=== PATIENT | female | born 1985 | race Caucasian/White ===

== ENCOUNTER 2016-07-18 11:21 | Emergency (ER) | payer BC, OTHER ==
[~2016-07-18] VITALS: Ht 160 cm; Wt 77.1 kg
[~2016-07-18 11:21] MED LIST: ACETAMINOPHEN-1 EAC1 ORAL; ATIVAN1 MG ORAL; BACTRIM DS TAB1 EAC1 ORAL; BENTYL10 MG ORAL; COMPAZINE10 MG ORAL; DOXYCYCLINE MO100 MG ORAL; IBUPROFEN600 MG ORAL; KEFLEX500 MG ORAL; METRONIDAZOLE500 MG ORAL; NKM; NORCO 5-325 TA1 EACH ORAL; TAMIFLU75 MG ORAL; TYLENOL EXTRA500 MG ORAL; TYLENOL650 MG/20. ORAL; lorazepam; propanolol PO
[2016-07-18 12:10] VITALS: BP 106/69
[2016-07-18 12:55] VITALS: BP 106/69
--- NOTE | 2016-07-18 14:25 | Emergency Room Report ---
History of Present Illness General Chief Complaint: Back Pain-No Injury Source: Patient Present Illness HPI The patient is a 30-year-old female presenting with lower back pain which she states began 1 month prior. The patient states that she is a history of back pain which started after falling onto a ladder at work one year prior. The patient states that she has an appointment with a neurosurgeon in one week but is unsure of her diagnosis. The pain is described as a 10 out of 10 dull ache to the mid lower back and radiates to the legs. It is worse with walking and bending over. The patient denies any numbness or tingling of the extremities. The patient states that she has been taking Motrin and Tylenol which have not helped. Allergies: Coded Allergies: METOCLOPRAMIDE (Verified Allergy, Severe, anxious, 04/13/13) KETOROLAC (Unverified Allergy, Unknown, 04/17/14) MORPHINE (Verified Adverse Reaction, Unknown, 04/17/14) "high heart rate" Uncoded Allergies: MUSCLE RELAXERS (Allergy, Unknown, 11/14/15) antiemetics (Adverse Reaction, Unknown, 04/17/14) Patient History Past Medical History: see triage record Pertinent Family History: none Last Menstrual Period: none Now: No Reviewed Nursing Documentation: PMH: Agreed, PSxH: Agreed Nursing Documentation-PMH Past Medical History: No History, Except For Hx Cardiac Problems: No - Bilateral Thyroid mass Hx Neurological Problems: Yes - restless leg syndrome, RA Review of Systems All Other Systems: negative except mentioned in HPI Physical Exam Vital Signs Date Time Temp Pulse Resp B/P Pulse Ox O2 Delivery O2 Flow Rate FiO2 07/18/16 11:43 98.4 93 18 106/69 98 Room Air Sp02 EP Interpretation: reviewed, normal General Appearance: no apparent distress, alert, GCS 15, non-toxic Head: normocephalic, atraumatic Eyes: bilateral eye PERRL, bilateral eye normal inspection Respiratory: chest non-tender, lungs clear, normal breath sounds, speaking full sentences Cardiovascular #1: regular rate, rhythm, no edema Musculoskeletal: normal inspection, back normal, digits/nails normal, gait/ station normal, normal range of motion, tender - TTP over Mid lumbar spine and paraspinous muscles Neurologic: alert, oriented x3, responsive, motor strength/tone normal, sensory intact, normal gait, speech normal Reflexes: 3+ bicep (R), 3+ bicep (L), 3+ tricep (R), 3+ tricep (L), 3+ knee (R) , 3+ knee (L) Skin: normal color, no rash, warm/dry, well hydrated Lymphatic: no adenopathy Medical Decision Making PA Attestation Dr. Ribeiro is my supervising physician. Patient management was discussed with my supervising physician Diagnostic Impression: Primary Impression: Chronic pain Additional Impression: Drug-seeking behavior ER Course The patient is a 30-year-old female presenting with lower back pain which she states began 1 month prior. Ddx considered include but not limited to lumbar strain, degenerative disease, epidural abscess, cauda equina, chronic pain, narcotic dependency. PE: vitals WNL. NAD Lumbar: TTP of paraspinous muscles and midline. No step-offs or obvious deformity. Full active range of motion. Normal gait. sensation intact to light touch. Otherwise exam is unremarkable. The patient is requesting narcotic medication. CURES was consulted. The patient last received 120 tablets of Wildrose one week prior. The patient was told of this information and has now chosen to leave. The patient was advised she needs to followup with primary care doctor and/or pain management for further care. ER precautions are given Last Vital Signs Date Time Temp Pulse Resp B/P Pulse Ox O2 Delivery O2 Flow Rate FiO2 07/18/16 12:55 98.4 93 18 106/69 98 Room Air Status: improved Disposition: HOME, SELF-CARE Condition: Stable Referrals: NOT CHOSEN IPA/MD,REFERRING (PCP) Patient Instructions: Back Pain, Adult Additional Instructions: I discussed my findings with the patient. All questions and concerns have been answered. Treatment and medication compliance have been addressed. I advised the patient that they need to follow up with PMD in 3-5 days. Return to ED if symptoms worsen, new symptoms arise, or if needed for any reason. Patient verbalized understanding of discharge instructions. The patient is advised to see pain managment for further care ALEJANDRO CROWLEY Jul 18, 2016 14:25
== END 2016-07-18 12:55 | disposition home or self-care (01) ==
LOC: EMR 12:37
DX: G89.29 Other chronic pain (principal); Z76.5 Malingerer [conscious simulation]; Z88.6 Allergy status to analgesic agent
CPT/HCPCS: 99282